=== PATIENT | male | born 1955 | race Caucasian/White ===

== ENCOUNTER 2025-03-22 17:42 | Emergency (ER) | payer MEDICARE, SELFPAY ==
[2025-03-22 17:59] VITALS: BP 125/81; PULSE 67; RESP 16; TEMP 36.2; O2SAT 100
--- NOTE | 2025-03-22 18:13 | ED.EYEPROB ---
HPI - Eye Problem General Chief complaint: Eye Problems Stated complaint: Eye Irritation Time Seen by Provider: 03/22/25 18:00 Source: patient and RN notes reviewed Mode of arrival: ambulatory Limitations: no limitations History of Present Illness HPI Narrative: 69-year-old male patient presents today with a foreign body sensation to the left eye since yesterday. He also reports some blurred vision in the affected eye. Denies drainage or pain. He attempted to flush the eye without improvement of symptoms. Visual acuity upon arrival: Left eye-20/50, right eye-20/25. Related Data Home Medications ?Medication ?Instructions ?Recorded ?Confirmed ?Last Taken ?Type amlodipine 5 mg tablet mg 03/22/25 Unknown History atorvastatin 20 mg tablet mg 03/22/25 Unknown History fluticasone 100 mcg-salmeterol 50 inhalation 03/22/25 Unknown History mcg/dose blistr powdr for inhalation (Wixela Inhub) hydrochlorothiazide 12.5 mg tablet mg 03/22/25 Unknown History lisinopril 40 mg tablet mg 03/22/25 Unknown History Allergies Allergy/AdvReac Type Severity Reaction Status Date / Time No Known Allergies Allergy Verified 03/22/25 18:08 [facility] Past Medical History Medical History (Updated 03/22/25 @ 18:19 by Karen Laughlin, [employer] SERVICES OFFICER, SALES REPRESENTATIVE [employer]) Hypercholesterolemia Hypertension Comments At time of signature, I have reviewed and agree with nursing past medical, surgical, social and family history unless otherwise noted. Please see nursing chart for further information. There is no relevant family history pertinent to the presenting complaint Exam Narrative: GENERAL: Well-appearing, well-nourished, and in no acute distress. HEAD: Normocephalic, atraumatic. EYES: EOMI. PERRL. Left eye: Mildly edematous eyelids. Mildly injected conjunctiva. Fluorescein uptake at the 12 and 1 o'clock position just outside the iris. No foreign body. Noted see procedure note. ENT: Mucous membranes pink and moist. NECK: Normal AROM. CHEST: No respiratory distress. EXTREMITIES: Normal range of motion. No edema. SKIN: Warm, dry, no rash. Capillary refill normal. Normal skin turgor. NEURO: No focal deficits. Alert and oriented x3. Gait steady. PSYCH: Normal affect. No signs of depression or anxiety. Course Course Level of Care: Express Care Visit Vital Signs Vital signs: Vital Signs Temperature 97.2 F L 03/22/25 17:59 Pulse Rate 67 03/22/25 17:59 Respiratory Rate 16 03/22/25 17:59 Blood Pressure 125/81 03/22/25 17:59 Pulse Oximetry 100 03/22/25 17:59 Temperature 97.2 F L 03/22/25 17:59 Pulse Rate 67 03/22/25 17:59 Respiratory Rate 16 03/22/25 17:59 Blood Pressure 125/81 03/22/25 17:59 Pulse Oximetry 100 03/22/25 17:59 Reviewed Procedures Other Procedure Procedure 1: Other Procedure: Left eye was anesthetized with 1 drop of tetracaine and anesthesia was achieved. The eye was flushed with eye wash. Lid was inverted and examined. Moistened Qtip was used to sweep underneath the upper eyelid with 0 foreign bodies resulting. Cornea was dyed with fluorescein and 2 moderately large abrasions were noted at the 12 and 1 o'clock position just outside the iris. Pt tolerated procedure well. MDM - Eye Problem MDM Narrative Medical decision making narrative: 69-year-old male patient presents today with a foreign body sensation to the left eye since yesterday. He also reports some blurred vision in the affected eye. Denies drainage or pain. He attempted to flush the eye without improvement of symptoms. Visual acuity upon arrival: Left eye-20/50, right eye-20/25. Upon exam,Mildly edematous eyelids. Mildly injected conjunctiva. Fluorescein uptake at the 12 and 1 o'clock position just outside the iris. No foreign body. Patient will be placed on Polytrim to prevent infection. Recommend following up with his eye doctor this week to ensure proper healing. Patient agrees with plan. Vital signs stable. Anticipatory guidance given. Differential Diagnosis Differential diagnosis: Likely corneal abrasion, conjunctivitis, corneal ulcer and other (Foreign body) Critical Care Time Critical Care Time Critical Care Time: No Discharge Plan Discharge Clinical Impression: Abrasion of left cornea Qualifiers: Encounter type: initial encounter Qualified Code(s): S05.02XA - Injury of conjunctiva and corneal abrasion without foreign body, left eye, initial encounter Patient Disposition: Home Condition: Stable Instructions: Corneal Abrasion (ED) Additional Instructions: You have large corneal abrasion in the left cornea. Please use the eyedrops as directed. Follow-up with your eye doctor this week to ensure proper healing. Take Tylenol or ibuprofen for pain, if able. Patient Language: Frisian Prescriptions: New polymyxin B sulf-trimethoprim 10,000 unit- 1 mg/mL drops 1 drp LEFT EYE QID 7 Days Qty: 10 0RF No Action atorvastatin 20 mg tablet amlodipine 5 mg tablet fluticasone propion-salmeterol [Wixela Inhub] 100-50 mcg/dose blister with device INHALATION lisinopril 40 mg tablet hydrochlorothiazide 12.5 mg tablet Follow-up/Referrals: PHYSICIAN,LINUX SUPPORT ENGINEER [Primary Care Provider, Internal Medicine] Time of Disposition: 18:20
== END 2025-03-22 18:21 | disposition home or self-care (01) ==
PROVIDERS: Emergency Provider Nurse Practitioner
DX: S05.02XA Injury of conjunctiva and corneal abrasion without foreign body, left eye, initial encounter (principal); X58.XXXA Exposure to other specified factors, initial encounter; I10 Essential (primary) hypertension; E78.00 Pure hypercholesterolemia, unspecified
CPT/HCPCS: 99203; A9270; G0463